=== PATIENT | female | born 1935 | race Caucasian/White ===

== ENCOUNTER 2017-05-26 13:33 | Inpatient (IN) | payer OTHER ==
[~2017-05-26] VITALS: Ht 152.4 cm; Wt 55.1 kg
[2017-05-26] VITALS (14 sets, daily range): BP systolic 118–143; BP diastolic 55–68
[2017-05-26] MEDS ORDERED: IPRATROPIUM BROMIDE 0.02% 2.5 ML NEB ONE (13:53)
[2017-05-26] MEDS ORDERED: ALBUTEROL SULF 0.083% NEB SOLN 3 ML NEB ONE (13:53)
[2017-05-26] MEDS ORDERED: METHYLPREDNISOLONE SOD SUCC 125 MG/2ML VIAL IV STA (14:12)
[2017-05-26] MEDS ORDERED: SODIUM CHLORIDE 0.9% 1000ML 1,000 ML IV STA (14:12)
[2017-05-26 14:13] LABS: ABG HCO3 30 mmol/L (23-28); ABG PCO2 44 mmHg (41-51); ABG PH 7.44 (7.31-7.41); ABG PO2 57 mmHg (80-105)
[2017-05-26] MEDS ORDERED: ASPIRIN 81 MG CHEW TAB PO ONE ×2 (14:15→16:15)
--- NOTE | 2017-05-26 14:46 | Diagnostic Imaging Report ---
EXAM: CHEST SINGLE (PORTABLE) DATE: 05/26/2017 2:12 PM INDICATION: \S\SOB \[id number] \S\1425 \S\Y COMPARISON: None FINDINGS: The heart is not enlarged. Aortic vascular calcifications present. No pneumothorax. Airspace opacities in the lung bases present, most notably on the left. Advanced left glenohumeral joint osteoarthritis and probable chronic rotator cuff tear changes. IMPRESSION: Probable left lower lobe pneumonia. Radiographic follow-up recommended. Signed by: Dr. Tashi Khalil MD on 05/26/2017 2:42 PM
[2017-05-26 14:50] LABS: BASOPHILS # (AUTO) 0.1 (0.0-0.1); BASOPHILS % 0.3 % (0.0-1.0); EOSINOPHILS # (AUTO) 0.1 (0.0-0.4); EOSINOPHILS % 0.3 % (0.0-6.0); HEMATOCRIT 41.2 % (34.2-44.1); LYMPHOCYTES # (AUTO) 6.3 (1.0-3.2); LYMPHOCYTES % 23.2 % (18.0-39.1); MEAN CORPUSCULAR HEMOGLOBIN 29.1 pg (28-32); MEAN CORPUSCULAR HGB CONC 31.6 g/dL (31-35); MEAN CORPUSCULAR VOLUME 92.4 fL (81-99); MONOCYTES # (AUTO) 1.8 (0.2-0.8); MONOCYTES % 6.7 % (4.4-11.3); NEUTROPHILS # (AUTO) 18.8 (2.1-6.9); NEUTROPHILS % 68.9 % (38.7-80.0); PLATELET COUNT 258 x10e3/uL (140-360); RED BLOOD COUNT 4.46 x10e6/uL (3.6-5.1)
[2017-05-26 14:56] LABS: INR 0.97; PROTHROMBIN TIME 12.1 seconds (11.9-14.5)
[2017-05-26 14:57] LABS: PARTIAL THROMBOPLASTIN TIME 26.2 seconds (23.8-35.5)
[2017-05-26] MEDS ORDERED: ALBUTEROL SULF 0.083% NEB SOLN 3 ML NEB NEB ONE (15:00)
[2017-05-26] MEDS ORDERED: ALBUTEROL/IPRATROPIUM 3 ML NEB NEB ONE (15:00)
[2017-05-26 15:08] LABS: ALANINE AMINOTRANSFERASE 16 IU/L (0-55); ALBUMIN/GLOBULIN RATIO 0.8 (0.8-2.0); ALKALINE PHOSPHATASE 24 IU/L (40-150); ANION GAP 14.9 mmol/L (8-16); BLOOD UREA NITROGEN 20 mg/dL (7-26); BUN/CREATININE RATIO 28 (6-25); CALCIUM 9.2 mg/dL (8.4-10.2); CARBON DIOXIDE 30 mmol/L (22-29); CHLORIDE 100 mmol/L (98-107); CREATINE KINASE 21 IU/L (29-168); CREATININE, SERUM 0.71 mg/dL (0.57-1.11); EST GLOMERULAR FILTRATION RATE > 60 ML/MIN (60-); GLUCOSE 113 mg/dL (74-118); POTASSIUM 3.9 mmol/L (3.5-5.1); SODIUM 141 mmol/L (136-145)
[2017-05-26] MEDS ORDERED: CEFTRIAXONE SOD 1 GM VIAL IV ONE (15:30)
[2017-05-26 15:54] LABS: BURR CELLS SLIGHT; LYMPHOCYTES % (MANUAL) 17 % (19-48); MONOCYTES % (MANUAL) 17 % (3.4-9.0); NEUTROPHILS % (MANUAL) 63 % (40-74); RBC MORPHOLOGY COMMENT NORMAL; STOMATOCYTES SLIGHT
[2017-05-26 15:55] LABS: PLATELET ESTIMATE ADEQUATE; PLATELET MORPHOLOGY COMMENT NORMAL; POIKILOCYTOSIS SLIGHT
[2017-05-26] MEDS ORDERED: LEVOFLOXACIN 750MG/D5W 150ML 150 ML IV ONE (16:00)
[2017-05-26] MEDS: SODIUM CHLORIDE 0.9% 1000ML 1,000 ML IV SCH ×2 (16:33→20:30)
[2017-05-26] MEDS ORDERED: CEFTRIAXONE SOD 1 GM VIAL IV SCH (17:00)
--- OUTSIDE RECORDS SUMMARY | 2017-05-26 17:28 | XMS REPORT ---
Author Author [facility] Address Unknown Phone Unavailable Care Team Providers Care Certified Medical Technician Assistant Name Role Phone KANG LANDON Unavailable Unavailable Problems This patient has no known problems. Allergies, Adverse Reactions, Alerts This patient has no known allergies or adverse reactions. Medications This patient has no known medications. Results Test Description Test Time Test Comments Text Results Atomic Results Result Comments CHEST SINGLE (PORTABLE) [place] [address] Patient Name: SHERRY SMITH MR #: [id number] : 1935 Age/Sex: 82/F Req #: [id number] Adm Physician: Ordered by: KANG LANDON MD Report # : [id number] Location: ER Room/Bed: Procedure: [id number] DX/CHEST SINGLE (PORTABLE) Exam Date: 05/26/17 Exam Time: 1425 REPORT STATUS: Signed EXAM: CHEST SINGLE (PORTABLE) DATE: 05/26/2017 2:12 PM INDICATION: COMPARISON: None FINDINGS: The heart is not enlarged. Aortic vascular calcifications present. No pneumothorax. Airspace opacities in the lung bases present, most notably on the left. Advanced left glenohumeral joint osteoarthritis and probable chronic rotator cuff tear changes. IMPRESSION : Probable left lower lobe pneumonia. Radiographic follow-up recommended. Signed by: Dr. Tashi Montoya MD on 05/26/2017 2:42 PM Dictated By: TASHI MONTOYA MD 144 Transcribed By: MICHELLE on 05/26/17 144 COPY TO: KANG LANDON MD
[2017-05-26] MEDS: IPRATROPIUM BROMIDE 0.02% 2.5 ML NEB NEB SCH (19:05)
[2017-05-26] MEDS: ALBUTEROL SULF 0.083% NEB SOLN 3 ML NEB NEB SCH ×2 (19:05→22:30)
[2017-05-26] MEDS: METHYLPREDNISOLONE SOD SUCC 40 MG/ML VIAL IV SCH (22:40)
[2017-05-27] VITALS (21 sets, daily range): BP systolic 99–163; BP diastolic 54–87
[2017-05-27 01:40] LABS: CREATINE KINASE MB 0.6 ng/mL (0-5.0)
[2017-05-27] MEDS: IPRATROPIUM BROMIDE 0.02% 2.5 ML NEB NEB SCH ×2 (02:50→07:15)
[2017-05-27] MEDS: ALBUTEROL SULF 0.083% NEB SOLN 3 ML NEB NEB SCH ×3 (02:50→10:58)
[2017-05-27] MEDS: SODIUM CHLORIDE 0.9% 1000ML 1,000 ML IV SCH (04:59)
[2017-05-27 06:08] LABS: BASOPHILS % 0.1 % (0.0-1.0); HEMATOCRIT 36.8 % (34.2-44.1); LYMPHOCYTES # (AUTO) 1.6 (1.0-3.2); LYMPHOCYTES % 6.9 % (18.0-39.1); MEAN CORPUSCULAR HEMOGLOBIN 29.6 pg (28-32); MEAN CORPUSCULAR HGB CONC 32.6 g/dL (31-35); MEAN CORPUSCULAR VOLUME 90.6 fL (81-99); MONOCYTES # (AUTO) 0.3 (0.2-0.8); MONOCYTES % 1.5 % (4.4-11.3); NEUTROPHILS # (AUTO) 20.8 (2.1-6.9); NEUTROPHILS % 91.1 % (38.7-80.0); PLATELET COUNT 249 x10e3/uL (140-360); RED BLOOD COUNT 4.06 x10e6/uL (3.6-5.1)
[2017-05-27 06:23] LABS: ANION GAP 13.1 mmol/L (8-16); BLOOD UREA NITROGEN 18 mg/dL (7-26); BUN/CREATININE RATIO 25 (6-25); CALCIUM 8.6 mg/dL (8.4-10.2); CARBON DIOXIDE 29 mmol/L (22-29); CHLORIDE 103 mmol/L (98-107); CREATININE, SERUM 0.72 mg/dL (0.57-1.11); EST GLOMERULAR FILTRATION RATE > 60 ML/MIN (60-); GLUCOSE 188 mg/dL (74-118); POTASSIUM 4.1 mmol/L (3.5-5.1); SODIUM 141 mmol/L (136-145)
[2017-05-27 06:42] LABS: CREATINE KINASE MB 0.8 ng/mL (0-5.0)
[2017-05-27] MEDS: METHYLPREDNISOLONE SOD SUCC 40 MG/ML VIAL IV SCH (06:46)
--- NOTE | 2017-05-27 07:10 | Diagnostic Imaging Report ---
EXAM: CHEST SINGLE (PORTABLE) DATE: 05/27/2017 5:00 AM INDICATION: Suspected pneumonia. COMPARISON: 05/26/2017 FINDINGS: See impression IMPRESSION: 1. More confluent opacity in the left lower lobe on today's examination in keeping with stable pneumonia. 2. Superimposed bilateral interstitial opacities suspicious for new fluid overload pattern. Signed by: Dr. Maury Duron M.D. on 05/27/2017 7:07 AM
[2017-05-27] MEDS ORDERED: FUROSEMIDE INJ 10 MG/ML 2 ML VIAL IV ONE (12:15)
[2017-05-27] MEDS: ASPIRIN 81 MG CHEW TAB PO SCH (12:41)
[2017-05-27] MEDS: LOSARTAN POTASSIUM 25 MG TAB PO SCH (12:41)
[2017-05-27] MEDS: AMLODIPINE BESYLATE 5 MG TAB PO SCH (12:41)
[2017-05-27] MEDS: LEVOTHYROXINE SODIUM 125 MCG TAB PO SCH (12:42)
[2017-05-27] MEDS: ALBUTEROL/IPRATROPIUM 3 ML NEB NEB SCH ×3 (14:51→23:00)
[2017-05-27 15:01] LABS: BAND NEUTROPHILS % (MANUAL) 1 %; LYMPHOCYTES % (MANUAL) 6 % (19-48); NEUTROPHILS % (MANUAL) 93 % (40-74)
[2017-05-27 15:02] LABS: PLATELET ESTIMATE ADEQUATE; PLATELET MORPHOLOGY COMMENT NORMAL; RBC MORPHOLOGY COMMENT NORMAL
[2017-05-27 15:03] LABS: ANISOCYTOSIS SLIGHT
[2017-05-27] MEDS: ENOXAPARIN SOD INJ 40 MG/0.4 ML SYR SC SCH (17:00)
[2017-05-27] MEDS: CEFTRIAXONE SOD 1 GM VIAL IV SCH (17:00)
[2017-05-28] VITALS (13 sets, daily range): BP systolic 120–156; BP diastolic 55–98
[2017-05-28] MEDS: ALBUTEROL/IPRATROPIUM 3 ML NEB NEB SCH ×6 (02:20→22:57)
[2017-05-28 06:03] LABS: BASOPHILS % 0.1 % (0.0-1.0); HEMATOCRIT 33.5 % (34.2-44.1); HEMOGLOBIN 10.7 g/dL (12.0-16.0); LYMPHOCYTES # (AUTO) 2.7 (1.0-3.2); MEAN CORPUSCULAR HEMOGLOBIN 28.8 pg (28-32); MEAN CORPUSCULAR HGB CONC 31.9 g/dL (31-35); MEAN CORPUSCULAR VOLUME 90.1 fL (81-99); MONOCYTES # (AUTO) 0.9 (0.2-0.8); MONOCYTES % 4.5 % (4.4-11.3); NEUTROPHILS # (AUTO) 16.8 (2.1-6.9); NEUTROPHILS % 81.7 % (38.7-80.0); PLATELET COUNT 242 x10e3/uL (140-360); RED BLOOD COUNT 3.72 x10e6/uL (3.6-5.1); RED CELL DISTRIBUTION WIDTH 15.6 % (11.7-14.4)
[2017-05-28] MEDS: LEVOTHYROXINE SODIUM 125 MCG TAB PO SCH (06:23)
[2017-05-28] MEDS: LOSARTAN POTASSIUM 25 MG TAB PO SCH (08:34)
[2017-05-28] MEDS: ASPIRIN 81 MG CHEW TAB PO SCH (08:34)
[2017-05-28] MEDS: AMLODIPINE BESYLATE 5 MG TAB PO SCH (08:34)
[2017-05-28] MEDS: PREDNISONE 20 MG TAB PO SCH (08:35)
[2017-05-28] MEDS ORDERED: AMLODIPINE BESYLATE 5 MG TAB PO ONE (13:20)
[2017-05-28] MEDS: ENOXAPARIN SOD INJ 40 MG/0.4 ML SYR SC SCH (17:41)
[2017-05-28] MEDS: CEFTRIAXONE SOD 1 GM VIAL IV SCH (17:41)
[2017-05-29 01:48] VITALS: BP 134/76
[2017-05-29 06:14] LABS: BASOPHILS % 0.1 % (0.0-1.0); EOSINOPHILS # (AUTO) 0.1 (0.0-0.4); EOSINOPHILS % 0.4 % (0.0-6.0); HEMATOCRIT 35.3 % (34.2-44.1); HEMOGLOBIN 11.2 g/dL (12.0-16.0); LYMPHOCYTES # (AUTO) 3.7 (1.0-3.2); MEAN CORPUSCULAR HEMOGLOBIN 29.1 pg (28-32); MEAN CORPUSCULAR HGB CONC 31.7 g/dL (31-35); MEAN CORPUSCULAR VOLUME 91.7 fL (81-99); MONOCYTES # (AUTO) 0.8 (0.2-0.8); MONOCYTES % 5.6 % (4.4-11.3); NEUTROPHILS # (AUTO) 9.2 (2.1-6.9); NEUTROPHILS % 66.3 % (38.7-80.0); PLATELET COUNT 258 x10e3/uL (140-360); RED BLOOD COUNT 3.85 x10e6/uL (3.6-5.1); RED CELL DISTRIBUTION WIDTH 15.3 % (11.7-14.4)
[2017-05-29] MEDS: ALBUTEROL/IPRATROPIUM 3 ML NEB NEB SCH ×2 (06:50→10:45)
[2017-05-29 08:00] VITALS: BP 134/67
[2017-05-29 08:29] VITALS: BP 134/67
[2017-05-29] MEDS: ASPIRIN 81 MG CHEW TAB PO SCH (08:41)
[2017-05-29] MEDS: PREDNISONE 20 MG TAB PO SCH (08:42)
[2017-05-29] MEDS: LOSARTAN POTASSIUM 25 MG TAB PO SCH (08:42)
[2017-05-29] MEDS ORDERED: AMLODIPINE BESYLATE 10 MG TAB PO SCH (09:00)
--- NOTE | 2017-05-29 11:34 | Discharge Summary ---
PRIMARY CARE DOCTOR: Dr. Yonny Page. FINAL DIAGNOSIS: Acute respiratory failure, resolved. SECONDARY DIAGNOSES 1. Community-acquired pneumonia, present on admission. 2. Chronic obstructive pulmonary disease exacerbation. 3. Chronic respiratory failure due to chronic obstructive pulmonary disease. 4. Hypertension. 5. Hypothyroidism. CONSULTANTS: None. PROCEDURES/STUDIES PERFORMED: None. HISTORY: Per H and P. HOSPITAL COURSE: Patient was admitted. Initially, she was on BiPAP. We were able to get her off the BiPAP. Patient underwent a course of Z-Jere already, therefore patient was put on IV Rocephin along with scheduled nebulizer treatments. Steroids were started as well. Each day, patient continued to improve. Initially, she had a leukocytosis of 27. At the time of discharge, her white count was 13. Her TSH is suppressed at 0.02. I have informed her PCP about this and he will make adjustment if indicated. I have instructed patient to hold her levothyroxine until she follows up with her PCP. Patient is already on oxygen at home. Patient was seen and examined today. It took 32 minutes total to discharge this patient today. She will go home on 3 more days of p.o. Levaquin and Medrol Dosepak. CONDITION ON DISCHARGE: Stable. DISCHARGE MEDICATIONS: Please see medication reconciliation form. JOJO JOSE M.D. Job#: [id number] VAS cc:Dr. Yonny Page
[2017-05-29] MEDS ORDERED: LEVAQUIN500 MG PO (11:57)
[2017-05-29] MEDS ORDERED: MEDROL2 MG PO (11:58)
== END 2017-05-29 12:10 | disposition home or self-care (01) | DRG 193 ==
LOC: ER 13:33 → ERHOLD 17:25 → ICU 17:26 → IMCU 05-28 15:06
PROVIDERS: ADMIT Internal Medicine; ATTEND Internal Medicine
PROC: 5A09357 Assistance with Respiratory Ventilation, Less than 24 Consecutive Hours, Continuous Positive Airway Pressure (ICD-10-PCS; principal; 2017-05-26)
DX: J18.9 Pneumonia, unspecified organism (principal); J96.01 Acute respiratory failure with hypoxia; J96.21 Acute and chronic respiratory failure with hypoxia; J44.0 Chronic obstructive pulmonary disease with (acute) lower respiratory infection; J44.1 Chronic obstructive pulmonary disease with (acute) exacerbation; Z99.81 Dependence on supplemental oxygen; I10 Essential (primary) hypertension; E03.9 Hypothyroidism, unspecified; Z87.891 Personal history of nicotine dependence
CPT/HCPCS: 36415; 36600; 71045; 80048; 80053; 82550; 82553; 82805; 83605; 83880; 84443; 84484; 85025; 85610; 85730; 87040; 93005; 94640; 94660; 96360; 99285; J0696; J1650; J1940; J2920; J7030

== ENCOUNTER 2017-07-31 13:24 | Inpatient (IN) | payer OTHER ==
[~2017-07-31] VITALS: Ht 152.4 cm; Wt 53.7 kg
[~2017-07-31 13:24] MED LIST: LEVAQUIN500 MG PO; MEDROL2 MG PO
--- OUTSIDE RECORDS SUMMARY | 2017-07-31 13:28 | XMS REPORT | Continuity of Care Document ---
Author Author [facility] Organization [facility] Address [address] [place] [address] Phone Unavailable Care Team Providers Care Mandate Retail Service Merchandiser Name Role Phone NONSTAFF PCP Unavailable Insurance Providers Guarantor Cleveland Gonzales Address [address] [place] [address] Email [email or web address] [employer] Policy Number [id number] Subscriber's Name Cleveland Gonzales Relationship 18 Self / Same As Patient Group Number [id number] Group Name [facility] - Medicare Advantage Divis Advance Directives Directive Response Recorded Date/Time Does the patient have an advance directive? No 05/26/17 6:25pm If yes, is advance directive on file with [facility]? No 05/26/17 4:51pm If not on file with [facility] will patient provide a copy? No 05/26/17 4:51pm Do you have a Directive to Physician? No 05/26/17 4:51pm Do you have a Medical Power of Industrial Relations Specialist? No 05/26/17 4:51pm Do you have an out of hospital Do Not Resuscitate Order? No 05/26/17 4:51pm Do you have any special needs we should be aware of? No 05/26/17 4:51pm Do you have a support person here with you today? Yes 05/26/17 4:51pm Did patient receive Notice of Privacy Practices? Yes 05/26/17 4:51pm Did patient receive patient rights and responsibilities? Yes 05/26/17 4:51pm Problems No problem information available. Medications Current Home Medications Medication Dose Units Route Directions Days Qty Instructions Start Date Levofloxacin (Levaquin) 500 Mg Tablet 500 Mg Oral Daily 3 Days Methylprednisolone (Medrol) 2 Mg Tablet 2 Mg Oral Use As Directed Social History Social History Problem Response Recorded Date/Time Onset Date Status Hx Psychiatric Problems No 05/26/2017 6:25pm Not Applicable Not Applicable Hx Eating Disorder No 05/26/2017 6:25pm Not Applicable Not Applicable Hx Substance Use Disorder No 05/26/2017 6:25pm Not Applicable Not Applicable Hx Depression No 05/26/2017 6:25pm Not Applicable Not Applicable Hx Alcohol Use No 05/26/2017 6:25pm Not Applicable Not Applicable Hx Substance Use Treatment No 05/26/2017 6:25pm Not Applicable Not Applicable Hx Physical Abuse No 05/26/2017 6:25pm Not Applicable Not Applicable Smoking Status Start Date Stop Date Former smoker Hospital Discharge Instructions No hospital discharge instruction information available. Plan of Care Discharge Date 05/29/17 12:10pm Disposition HOME, SELF-CARE Instructions/Education Provided COPD Prescriptions See Medication Section Functional Status Query Response Date Recorded FUNCTIONAL STATUS . May 28, 2017 1:28pm Assistive Devices Standard Walker May 26, 2017 7:00pm Ambulation Ability Independent May 26, 2017 7:00pm Toileting Ability Minimum Assistance May 28, 2017 12:00pm Allergies, Adverse Reactions, Alerts No known allergies. Immunizations No immunization information available. Vital Signs Acute Vital Signs Vital Response Date/Time Temperature (Fahrenheit) 98.0 degrees F (97.6 - 99.5) 05/29/2017 8:29am Pulse Pulse Rate (adult) 92 bpm (60 - 90) 05/29/2017 8:29am Respiratory Rate 22 bpm (12 - 24) 05/29/2017 8:29am Blood Pressure 134/67 mm Hg 05/29/2017 8:29am Height 5 ft 0 in 05/26/2017 2:30pm Weight 121.56 lb 05/27/2017 7:40am Body Mass Index 23.7 kg/m^2 05/29/2017 9:30am Results Laboratory Results Test Name Result Units Flags Reference Collection Date/Time Result Date/ Time Comments White Blood Count 13.81 x10e3/uL H 4.8-10.8 05/29/2017 5:452017 6:17am Red Blood Count 3.85 x10e6/uL 3.6-5.1 05/29/2017 5:4505/29/2017 6: 17am Hemoglobin 11.2 g/dL L 12.0-16.0 05/29/2017 5:4505/29/2017 6:17am Hematocrit 35.3 % 34.2-44.1 05/29/2017 5:4505/29/2017 6:17am Mean Corpuscular Volume 91.7 fL 81-99 05/29/2017 5:4505/29/2017 6: 17am Mean Corpuscular Hemoglobin 29.1 pg 28-32 05/29/2017 5:4505/29/2017 6:17am Mean Corpuscular Hemoglobin Concent 31.7 g/dL 31-35 05/29/2017 5:4505/29/2017 6:17am Red Cell Distribution Width 15.3 % H 11.7-14.4 05/29/2017 5:452017 6:17am Platelet Count 258 x10e3/uL 140-360 05/29/2017 5:4505/29/2017 6: 17am Neutrophils (%) (Auto) 66.3 % 38.7-80.0 05/29/2017 5:4505/29/2017 6: 17am Lymphocytes (%) (Auto) 27.0 % 18.0-39.1 05/29/2017 5:4505/29/2017 6: 17am Monocytes (%) (Auto) 5.6 % 4.4-11.3 05/29/2017 5:4505/29/2017 6: 17am Eosinophils (%) (Auto) 0.4 % 0.0-6.0 05/29/2017 5:4505/29/2017 6: 17am Basophils (%) (Auto) 0.1 % 0.0-1.0 05/29/2017 5:4505/29/2017 6:17am IM GRANULOCYTES % 0.6 % 0.0-1.0 05/29/2017 5:45am 05/29/2017 6:17am Neutrophils # (Auto) 9.2 H 2.1-6.9 05/29/2017 5:45am 05/29/2017 6: 17am Lymphocytes # (Auto) 3.7 H 1.0-3.2 05/29/2017 5:45am 05/29/2017 6: 17am Monocytes # (Auto) 0.8 0.2-0.8 05/29/2017 5:45am 05/29/2017 6:17am Eosinophils # (Auto) 0.1 0.0-0.4 05/29/2017 5:45am 05/29/2017 6:17am Basophils # (Auto) 0.0 0.0-0.1 05/29/2017 5:45am 05/29/2017 6:17am Absolute Immature Granulocyte (auto 0.08 x10e3/uL 0-0.1 05/29/2017 5: 45am 05/29/2017 6:17am Differential Total Cells Counted 100 05/27/2017 6:00am 05/27/2017 3 :03pm Neutrophils % (Manual) 93 % H 40-74 05/27/2017 6:00am 05/27/2017 3:03pm Band Neutrophils % 1 % 05/27/2017 6:00am 05/27/2017 3:03pm Lymphocytes % (Manual) 6 % L 19-48 05/27/2017 6:00am 05/27/2017 3:03pm Monocytes % (Manual) 17 % H 3.4-9.0 05/26/2017 1:54pm 05/26/2017 3:55pm Reactive Lymphocytes 3 05/26/2017 1:54pm 05/26/2017 3:55pm Platelet Estimate ADEQUATE 05/27/2017 6:00am 05/27/2017 3:03pm Platelet Morphology Comment NORMAL 05/27/2017 6:00am 05/27/2017 3: 03pm Poikilocytosis SLIGHT 05/26/2017 1:54pm 05/26/2017 3:55pm Anisocytosis SLIGHT 05/27/2017 6:00am 05/27/2017 3:03pm Stomatocytes SLIGHT 05/26/2017 1:54pm 05/26/2017 3:55pm Yane Cells SLIGHT 05/26/2017 1:54pm 05/26/2017 3:55pm Red Cell Morphology Comment NORMAL 05/27/2017 6:00am 05/27/2017 3: 03pm Prothrombin Time 12.1 seconds 11.9-14.5 05/26/2017 1:54pm 05/26/2017 2: 59pm Prothromb Time International Ratio 0.97 05/26/2017 1:54pm 2017 2:59pm Oral Anticoagulant Therapy INR Values: 1. Low Intensity Therapy 1.5 - 2.0 2. Moderate Intensity Therapy 2.0 - 3.0 3. High Intensity Therapy(1) 2.5 - 3.5 4. High Intensity Therapy(2) 3.0 - 4.0 5. Panic Value INR > 5.0 Activated Partial Thromboplast Time 26.2 seconds 23.8-35.5 05/26/2017 1: 54pm 05/26/2017 2:59pm Sodium Level 141 mmol/L 136-145 05/27/2017 6:00am 05/27/2017 6:24am Potassium Level 4.1 mmol/L 3.5-5.1 05/27/2017 6:00am 05/27/2017 6:24am Chloride Level 103 mmol/L 98-107 05/27/2017 6:00am 05/27/2017 6:24am Carbon Dioxide Level 29 mmol/L -05/27/2017 6:00am 05/27/2017 6: 24am Anion Gap 13.1 mmol/L 8-05/27/2017 6:00am 05/27/2017 6:24am Blood Urea Nitrogen 18 mg/dL -05/27/2017 6:00am 05/27/2017 6:24am Creatinine 0.72 mg/dL 0.57-1.11 05/27/2017 6:00am 05/27/2017 6:24am BUN/Creatinine Ratio 24 09-05/27/2017 6:00am 05/27/2017 6:24am Estimat Glomerular Filtration Rate > 60 ML/MIN 60- 05/27/2017 6:00am 6:24am Ranges were taken from the National Kidney Disease Education Program and the National Kid[employer] Foundation literature. Reference ranges: 60 or greater: Normal 16-59 (for 3 consecutive months): Chronic kidney disease 15 or less: Kidney failure Glucose Level 188 mg/dL H 74-118 05/27/2017 6:00am 05/27/2017 6:24am Calcium Level 8.6 mg/dL 8.4-10.2 05/27/2017 6:00am 05/27/2017 6:24am Lactic Acid Level 13.0 MG/DL 4.5-19.8 05/26/2017 2:06pm 05/26/2017 3: 06pm Total Bilirubin 1.1 mg/dL 0.2-1.2 05/26/2017 1:54pm 05/26/2017 3:09pm Aspartate Amino Transf (AST/SGOT) 17 IU/L 5-34 05/26/2017 1:54pm 2017 3:09pm Alanine Aminotransferase (ALT/SGPT) 16 IU/L 0-55 05/26/2017 1:54pm 3:09pm Total Protein 6.8 g/dL 6.5-8.1 05/26/2017 1:54pm 05/26/2017 3:09pm Albumin 3.0 g/dL L 3.5-5.0 05/26/2017 1:54pm 05/26/2017 3:09pm Globulin 3.8 g/dL H 2.3-3.5 05/26/2017 1:54pm 05/26/2017 3:09pm Albumin/Globulin Ratio 0.8 0.8-2.0 05/26/2017 1:54pm 05/26/2017 3: 09pm Alkaline Phosphatase 24 IU/L L 40-150 05/26/2017 1:54pm 05/26/2017 3: 09pm B-Type Natriuretic Peptide 33.8 pg/mL 0-100 05/26/2017 1:54pm 2017 3:15pm Creatine Kinase 16 IU/L L 29-168 05/27/2017 6:00am 05/27/2017 6:50am Creatine Kinase MB 0.80 ng/mL 0-5.0 05/27/2017 6:00am 05/27/2017 6: 50am Troponin I 0.004 ng/mL 0-0.300 05/27/2017 6:00am 05/27/2017 6:50am Thyroid Stimulating Hormone (TSH) 0.025 uIU/mL L 0.350-4.940 05/28/2017 5 :30am 05/28/2017 6:52am Arterial Blood pH 7.44 H 7.31-7.41 05/26/2017 2:02pm 05/26/2017 2: 14pm Arterial Blood Partial Pressure CO2 44 mmHg 41-51 05/26/2017 2:02pm 2:14pm Arterial Blood Partial Pressure O2 57 mmHg L 80-105 05/26/2017 2:02pm 2:14pm Arterial Blood HCO3 30 mmol/L H 23-28 05/26/2017 2:02pm 05/26/2017 2: 14pm Arterial Blood Base Excess 6.0 mmol/L H -2 - 3 05/26/2017 2:02pm 2017 2:14pm Arterial Blood Oxygen Saturation 90.0 % L 95-98 05/26/2017 2:02pm 2017 2:14pm Microbiology Results Procedure Source Organism/Result Collection Date/Time Result Date/Time Result Status Blood Culture Blood NO GROWTH AFTER 48 HOURS 2:00pm 05/28/2017 2:42pm Preliminary Procedures No procedure information available. Encounters Encounter Location Arrival/Admit Date Discharge/Depart Date Attending Provider Discharged Inpatient [facility] 05/26/17 5:25pm 05/29/17 12:10pm JOJO JOSE MD
[2017-07-31 15:29] LABS: BASOPHILS # (AUTO) 0.1 (0.0-0.1); BASOPHILS % 0.9 % (0.0-1.0); EOSINOPHILS # (AUTO) 0.2 (0.0-0.4); EOSINOPHILS % 1.6 % (0.0-6.0); HEMATOCRIT 39.2 % (34.2-44.1); HEMOGLOBIN 12.5 g/dL (12.0-16.0); LYMPHOCYTES # (AUTO) 4.8 (1.0-3.2); LYMPHOCYTES % 35.2 % (18.0-39.1); MEAN CORPUSCULAR HEMOGLOBIN 29.4 pg (28-32); MEAN CORPUSCULAR HGB CONC 31.9 g/dL (31-35); MEAN CORPUSCULAR VOLUME 92.2 fL (81-99); MONOCYTES # (AUTO) 0.8 (0.2-0.8); MONOCYTES % 5.7 % (4.4-11.3); NEUTROPHILS # (AUTO) 7.6 (2.1-6.9); NEUTROPHILS % 56.1 % (38.7-80.0); PLATELET COUNT 558 x10e3/uL (140-360); RED BLOOD COUNT 4.25 x10e6/uL (3.6-5.1); RED CELL DISTRIBUTION WIDTH 14.8 % (11.7-14.4)
[2017-07-31] MEDS ORDERED: ALBUTEROL/IPRATROPIUM 3 ML NEB NEB ONE (15:30)
[2017-07-31] MEDS ORDERED: SODIUM CHLORIDE 0.9% 500ML 500 ML IV ONE (15:30)
[2017-07-31 15:43] LABS: ALANINE AMINOTRANSFERASE 9 IU/L (0-55); ALBUMIN 2.7 g/dL (3.5-5.0); ALBUMIN/GLOBULIN RATIO 0.5 (0.8-2.0); ALKALINE PHOSPHATASE 25 IU/L (40-150); ANION GAP 16.1 mmol/L (8-16); BLOOD UREA NITROGEN 34 mg/dL (7-26); BUN/CREATININE RATIO 38 (6-25); CALCIUM 10.2 mg/dL (8.4-10.2); CARBON DIOXIDE 31 mmol/L (22-29); CHLORIDE 98 mmol/L (98-107); CREATININE, SERUM 0.89 mg/dL (0.57-1.11); EST GLOMERULAR FILTRATION RATE > 60 ML/MIN (60-); GLUCOSE 101 mg/dL (74-118); POTASSIUM 4.1 mmol/L (3.5-5.1); SODIUM 141 mmol/L (136-145)
--- NOTE | 2017-07-31 16:54 | Diagnostic Imaging Report ---
PROCEDURE: Frontal and lateral views of the chest. COMPARISON: Patients [facility], DX, CHEST SINGLE (PORTABLE), 05/27/2017, 5:03. INDICATIONS: HYPOXIA FINDINGS: Lines/tubes: None. Lungs: Increased lucency in the upper lungs and mild hyperinflation, suggesting COPD. Increased density/opacity in the right infrahilar region. Patchy opacity in the left lower lung. Rest of the lungs is clear Pleura: There is no pleural effusion or pneumothorax. Heart and mediastinum: Cardiac silhouette is unremarkable. Pulmonary vasculature is normal. Atherosclerotic calcification of the thoracic aorta arch. Bones: No acute bony abnormality. IMPRESSION: 1. COPD changes. increased density/opacity in the right infrahilar region, which may represent pneumonia, in the appropriate clinical setting. Patchy opacity in the left lower lung may reflect atelectasis. Recommend chest PA and lateral 4-6 weeks after appropriate treatment to document resolution. Homero Oliveros M.D. Dictated by: Homero Oliveros M.D. on 07/31/2017 at 16:55 Electronically approved by: Homero Oliveros M.D. on 07/31/2017 at 16:55
[2017-07-31 16:58] LABS: B-TYPE NATRIURETIC PEPTIDE2 36.6 pg/mL (0-100)
[2017-07-31] MEDS ORDERED: LEVOFLOXACIN 500MG/D5W 100ML 100 ML IV ONE (17:00)
[2017-07-31] MEDS ORDERED: SODIUM CHLORIDE FLUSH 10 ML SYR INJ PRN (17:00)
[2017-07-31] MEDS ORDERED: SYNTHROID100 MCG PO (18:22)
[2017-07-31] MEDS ORDERED: ADVAIR 250-501 EACH INH (18:22)
[2017-07-31] MEDS ORDERED: SPIRIVA18 MCG INH (18:22)
[2017-07-31] MEDS: ALBUTEROL/IPRATROPIUM 3 ML NEB NEB SCH ×2 (19:00→23:18)
[2017-07-31 20:00] VITALS: BP 130/54
[2017-08-01] VITALS (7 sets, daily range): BP systolic 112–131; BP diastolic 46–62
[2017-08-01] MEDS: ALBUTEROL/IPRATROPIUM 3 ML NEB NEB SCH ×6 (03:00→22:45)
[2017-08-01 06:39] LABS: BASOPHILS # (AUTO) 0.1 (0.0-0.1); BASOPHILS % 0.8 % (0.0-1.0); EOSINOPHILS # (AUTO) 0.2 (0.0-0.4); EOSINOPHILS % 1.6 % (0.0-6.0); HEMATOCRIT 36.5 % (34.2-44.1); HEMOGLOBIN 11.6 g/dL (12.0-16.0); LYMPHOCYTES % 38.7 % (18.0-39.1); MEAN CORPUSCULAR HEMOGLOBIN 29.2 pg (28-32); MEAN CORPUSCULAR HGB CONC 31.8 g/dL (31-35); MEAN CORPUSCULAR VOLUME 91.9 fL (81-99); MONOCYTES # (AUTO) 0.9 (0.2-0.8); MONOCYTES % 7.1 % (4.4-11.3); NEUTROPHILS # (AUTO) 6.7 (2.1-6.9); NEUTROPHILS % 51.3 % (38.7-80.0); PLATELET COUNT 503 x10e3/uL (140-360); RED BLOOD COUNT 3.97 x10e6/uL (3.6-5.1); RED CELL DISTRIBUTION WIDTH 14.7 % (11.7-14.4)
[2017-08-01 07:13] LABS: ANION GAP 14.4 mmol/L (8-16); BLOOD UREA NITROGEN 22 mg/dL (7-26); BUN/CREATININE RATIO 25 (6-25); CALCIUM 9.7 mg/dL (8.4-10.2); CARBON DIOXIDE 30 mmol/L (22-29); CHLORIDE 100 mmol/L (98-107); CREATININE, SERUM 0.87 mg/dL (0.57-1.11); EST GLOMERULAR FILTRATION RATE > 60 ML/MIN (60-); GLUCOSE 88 mg/dL (74-118); POTASSIUM 4.4 mmol/L (3.5-5.1); SODIUM 140 mmol/L (136-145)
[2017-08-01 08:21] LABS: EOSINOPHILS % (MANUAL) 5 % (0-7); LYMPHOCYTES % (MANUAL) 31 % (19-48); METAMYELOCYTES % (MANUAL) 1 % (0-0); MONOCYTES % (MANUAL) 10 % (3.4-9.0); NEUTROPHILS % (MANUAL) 50 % (40-74)
[2017-08-01 08:22] LABS: ANISOCYTOSIS SLIGHT; HYPOCHROMASIA SLIGHT; PLATELET ESTIMATE SLIGHTLY DECREASED; PLATELET MORPHOLOGY COMMENT NORMAL; RBC MORPHOLOGY COMMENT NORMAL
[2017-08-01] MEDS ORDERED: BENZONATATE 100 MG CAP PO PRN (09:15)
[2017-08-01] MEDS ORDERED: CEFTRIAXONE SOD 1 GM/NS 50 ML 50 ML IV SCH (09:15)
[2017-08-01] MEDS ORDERED: CEFTRIAXONE SOD 1 GM VIAL IV SCH (09:45)
[2017-08-01] MEDS ORDERED: AZITHROMYCIN 250 MG TAB PO NR (10:00)
--- NOTE | 2017-08-01 11:23 | Diagnostic Imaging Report ---
PROCEDURE:CT CHEST WITHOUT CONTRAST COMPARISON:Chest x-rayS 05/26/17 and 07/31/17 INDICATIONS:PNEUMONIA TECHNIQUE:CT images were created without the administration of contrast material. DLP: 270.57 mGy-cm FINDINGS: LYMPH NODES: No enlarged axillary or subclavicular lymph nodes. No enlarged mediastinal or hilar lymph nodes given the lack of intravenous contrast. LUNGS: Diffusely hyperinflated. No evidence of interstitial thickening. There is bilateral apical pleural-parenchymal thickening. Right lung: There is mucus filling several lower lobe bronchi with resulting atelectasis. Several tiny nodules in the lateral aspect of the lower lobe are in an "tree in bud configuration". There is mild centrilobular emphysema of the lung apex. There is diffuse bronchial wall thickening without evidence of bronchiectasis. Left lung: Spiculated nodule in the upper lobe measures 1.1 x 0.7 cm. Solid, triangle shaped nodule in the posterior upper lobe measures 0.6 x 0.8 cm. Nodule in the posterior upper lobe measures 0.5 x 0.7 cm. Nodule in the superior segment of the lower lobe measures 0.8 x 0.7 cm. There is subsegmental atelectasis of the base of the lobe with several bronchi filled with mucus. There is mild bronchial wall thickening without bronchiectasis. Airways: Diffuse calcifications of the tracheobronchial tree. PLEURA: Tiny posterior layering right pleural effusion. THYROID/BASE OF NECK: Visualized portions are unremarkable. MEDIASTINUM: The heart is mildly enlarged. No pericardial effusion. The main pulmonary artery measures 3 cm in diameter. The ascending aorta measures 3 cm in diameter. The esophagus is collapsed. There are diffuse calcifications of the aorta and coronary arteries. CHEST WALL:No defects or evidence of soft tissue mass. LIMITED ABDOMEN:No mass the visualized portion of the liver, gallbladder, pancreas, spleen, and left kidney. There is mild thickening of the apex of the left adrenal gland. Underlying nodule cannot be excluded. BONES:Degenerative changes of the spine consistent with age. There degenerative changes of the shoulders, left more severe than right. No compression deformities of the thoracic spine. A sclerotic, nondestructive lesion in T9 measures 5 mm and is surrounded by a lucent lesion measuring 9 mm with coarse trabecular markings suggestive of a hemangioma. CONCLUSION: 1. Bilateral lower lobe bronchial opacification with resulting subsegmental atelectasis and likely several areas of pneumonia. Findings are concerning for aspiration. 2. Multiple "tree in bud" nodules in the right lower lobe suggestive of bronchopneumonia. 3. Multiple nodules in the left lung and sclerotic lesion in the spine bear watching to confirm stability. This can be performed in 6 months. 4. Cardiomegaly and enlarged main pulmonary artery consistent with pulmonary artery hypertension. Aortic ectasia. Atherosclerosis. 5. Mild emphysema and chronic bronchitis. 6. Thickening of the left adrenal gland. Underlying nodule cannot be excluded. Recommended CT of the abdomen for further characterization. Dictated by: Nic Hwang M.D. on 08/01/2017 at 11:24 Electronically approved by: Nic Hwang M.D. on 08/01/2017 at 11:24
[2017-08-01] MEDS: METHYLPREDNISOLONE SOD SUCC 40 MG/ML VIAL IV SCH ×2 (13:00→22:08)
[2017-08-01] MEDS: BENZONATATE 100 MG CAP PO SCH ×2 (14:20→20:33)
[2017-08-01] MEDS: SALMETEROL/FLUTICASONE 250/50 INH SCH (19:40)
[2017-08-02] VITALS (7 sets, daily range): BP systolic 116–135; BP diastolic 56–62
[2017-08-02] MEDS: ALBUTEROL/IPRATROPIUM 3 ML NEB NEB SCH ×6 (02:06→22:55)
[2017-08-02] MEDS: METHYLPREDNISOLONE SOD SUCC 40 MG/ML VIAL IV SCH ×3 (06:10→20:16)
[2017-08-02] MEDS: LEVOTHYROXINE SODIUM 100 MCG TAB PO SCH (06:10)
[2017-08-02 06:51] LABS: BASOPHILS % 0.1 % (0.0-1.0); HEMATOCRIT 37.5 % (34.2-44.1); LYMPHOCYTES # (AUTO) 1.7 (1.0-3.2); LYMPHOCYTES % 18.3 % (18.0-39.1); MEAN CORPUSCULAR VOLUME 90.6 fL (81-99); MONOCYTES # (AUTO) 0.1 (0.2-0.8); MONOCYTES % 0.8 % (4.4-11.3); NEUTROPHILS # (AUTO) 7.4 (2.1-6.9); NEUTROPHILS % 80.3 % (38.7-80.0); PLATELET COUNT 509 x10e3/uL (140-360); RED BLOOD COUNT 4.14 x10e6/uL (3.6-5.1); RED CELL DISTRIBUTION WIDTH 14.5 % (11.7-14.4)
[2017-08-02 07:20] LABS: ANION GAP 17.2 mmol/L (8-16); BLOOD UREA NITROGEN 29 mg/dL (7-26); BUN/CREATININE RATIO 35 (6-25); CALCIUM 9.3 mg/dL (8.4-10.2); CARBON DIOXIDE 26 mmol/L (22-29); CHLORIDE 97 mmol/L (98-107); CREATININE, SERUM 0.82 mg/dL (0.57-1.11); EST GLOMERULAR FILTRATION RATE > 60 ML/MIN (60-); GLUCOSE 165 mg/dL (74-118); POTASSIUM 4.2 mmol/L (3.5-5.1); SODIUM 136 mmol/L (136-145)
[2017-08-02] MEDS: SALMETEROL/FLUTICASONE 250/50 INH SCH ×2 (07:40→18:47)
[2017-08-02] MEDS ORDERED: AZITHROMYCIN 250 MG TAB PO SCH (09:00)
[2017-08-02] MEDS: BENZONATATE 100 MG CAP PO SCH ×3 (09:23→20:16)
[2017-08-02] MEDS ORDERED: SODIUM CHLORIDE 0.9% 250ML 250 ML ONE (11:52)
[2017-08-02] MEDS: PIPER-TAZ 3.375 GM 100 ML IV SCH ×2 (12:00→17:55)
[2017-08-02] MEDS: ENOXAPARIN 30 MG/0.3 ML SYR SC SCH (17:30)
[2017-08-03] VITALS (10 sets, daily range): BP systolic 110–162; BP diastolic 54–68
[2017-08-03] MEDS: PIPER-TAZ 3.375 GM 100 ML IV SCH ×3 (02:30→17:17)
[2017-08-03] MEDS: ALBUTEROL/IPRATROPIUM 3 ML NEB NEB SCH ×6 (03:44→23:40)
[2017-08-03 05:56] LABS: BASOPHILS % 0.2 % (0.0-1.0); HEMATOCRIT 31.8 % (34.2-44.1); HEMOGLOBIN 10.4 g/dL (12.0-16.0); LYMPHOCYTES # (AUTO) 1.7 (1.0-3.2); LYMPHOCYTES % 13.3 % (18.0-39.1); MEAN CORPUSCULAR HEMOGLOBIN 29.4 pg (28-32); MEAN CORPUSCULAR HGB CONC 32.7 g/dL (31-35); MEAN CORPUSCULAR VOLUME 89.8 fL (81-99); MONOCYTES # (AUTO) 0.4 (0.2-0.8); NEUTROPHILS # (AUTO) 10.5 (2.1-6.9); NEUTROPHILS % 82.8 % (38.7-80.0); PLATELET COUNT 437 x10e3/uL (140-360); RED BLOOD COUNT 3.54 x10e6/uL (3.6-5.1); RED CELL DISTRIBUTION WIDTH 14.6 % (11.7-14.4)
[2017-08-03] MEDS: LEVOTHYROXINE SODIUM 100 MCG TAB PO SCH (05:56)
[2017-08-03] MEDS: METHYLPREDNISOLONE SOD SUCC 40 MG/ML VIAL IV SCH ×3 (05:56→21:02)
[2017-08-03 06:17] LABS: ANION GAP 12.8 mmol/L (8-16); BLOOD UREA NITROGEN 33 mg/dL (7-26); BUN/CREATININE RATIO 38 (6-25); CALCIUM 8.8 mg/dL (8.4-10.2); CARBON DIOXIDE 30 mmol/L (22-29); CHLORIDE 99 mmol/L (98-107); CREATININE, SERUM 0.87 mg/dL (0.57-1.11); EST GLOMERULAR FILTRATION RATE > 60 ML/MIN (60-); GLUCOSE 170 mg/dL (74-118); POTASSIUM 4.8 mmol/L (3.5-5.1); SODIUM 137 mmol/L (136-145)
[2017-08-03] MEDS: SALMETEROL/FLUTICASONE 250/50 INH SCH ×2 (07:00→20:00)
[2017-08-03] MEDS: AZITHROMYCIN 250 MG TAB PO SCH (09:00)
[2017-08-03] MEDS: BENZONATATE 100 MG CAP PO SCH ×3 (09:00→21:02)
[2017-08-03] MEDS: ENOXAPARIN 30 MG/0.3 ML SYR SC SCH (17:17)
[2017-08-04] VITALS (7 sets, daily range): BP systolic 132–164; BP diastolic 58–72
[2017-08-04] MEDS: PIPER-TAZ 3.375 GM 100 ML IV SCH ×3 (02:18→17:14)
[2017-08-04] MEDS: ALBUTEROL/IPRATROPIUM 3 ML NEB NEB SCH ×6 (03:00→23:50)
[2017-08-04] MEDS: METHYLPREDNISOLONE SOD SUCC 40 MG/ML VIAL IV SCH ×3 (06:41→21:16)
[2017-08-04] MEDS: LEVOTHYROXINE SODIUM 100 MCG TAB PO SCH (06:41)
[2017-08-04] MEDS: SALMETEROL/FLUTICASONE 250/50 INH SCH ×2 (07:10→20:00)
[2017-08-04] MEDS: BENZONATATE 100 MG CAP PO SCH ×3 (08:59→21:16)
[2017-08-04] MEDS: AZITHROMYCIN 250 MG TAB PO SCH (08:59)
[2017-08-04] MEDS: ENOXAPARIN 30 MG/0.3 ML SYR SC SCH (17:14)
[2017-08-05] MEDS: PIPER-TAZ 3.375 GM 100 ML IV SCH (02:00)
[2017-08-05] MEDS: ALBUTEROL/IPRATROPIUM 3 ML NEB NEB SCH ×3 (03:00→11:00)
[2017-08-05 04:10] VITALS: BP 146/67
[2017-08-05] MEDS: METHYLPREDNISOLONE SOD SUCC 40 MG/ML VIAL IV SCH (05:54)
[2017-08-05] MEDS: LEVOTHYROXINE SODIUM 100 MCG TAB PO SCH (05:54)
[2017-08-05] MEDS: SALMETEROL/FLUTICASONE 250/50 INH SCH (07:00)
[2017-08-05 07:49] VITALS: BP 132/71
[2017-08-05] MEDS: BENZONATATE 100 MG CAP PO SCH (08:57)
[2017-08-05] MEDS: AZITHROMYCIN 250 MG TAB PO SCH (08:57)
[2017-08-05 09:18] VITALS: BP 132/71
[2017-08-05] MEDS ORDERED: DALIRESP500 MCG PO (11:25)
[2017-08-05] MEDS ORDERED: AUGMENTIN 875-1 EACH PO (11:27)
[2017-08-05] MEDS ORDERED: TESSALON PERLE100 MG PO (11:28)
[2017-08-05] MEDS ORDERED: ZOFRAN ODT4 MG SL (11:30)
[2017-08-05] MEDS ORDERED: METHYLPREDNISOLO4 M1 (11:32)
[2017-08-05 11:58] VITALS: BP 180/70
--- NOTE | 2017-08-05 23:52 | Discharge Summary ---
PCP: Dr. Yonny Page. FINAL DIAGNOSES 1. Aspiration pneumonia with multilobar pneumonia secondary to severe cough. 2. Acute exacerbation of chronic obstructive pulmonary disease. 3. Status post hypoxia. 4. Status post leukocytosis, fever with cough. 5. Baseline oxygen dependency with advanced chronic obstructive pulmonary disease. SUMMARY: An 82-year-old female with persistent cough, fever, shortness of breath, and hypoxic. At baseline, the patient is oxygen dependent secondary to her emphysema. Apparently she aspirated when she was having severe cough. She came in with multilobar pneumonia, worse on the right compared to the left. Patient placed on Zosyn and azithromycin. She received multiple nebulizer treatments. She also received steroids. Patient is doing much better now. She will discharge home today. On home medications, she does have nebulizer medication and Advair Diskus. She is stable. She will go home with the following prescription 1. Medrol Dosepak to finish for 7 days. 2. Augmentin 875 mg b.i.d. for 5 days with food. 3. Tessalon Perles 100 mg q.4 h. p.r.n. for cough. 4. Zofran ODT 4 mg sublingual q.4 h. p.r.n. for nausea and vomiting. We will place the patient on Daliresp 250 daily for advanced COPD with hospitalization to prevent recurrent hospitalizations. Discussed with the patient that insurance may not pay for that medication at this time. Patient is well aware. The patient is stable. Discharged home. Follow up as an outpatient. She will follow up with Dr. Yonny Page within a week. Job#: [id number]
== END 2017-08-05 12:10 | disposition home or self-care (01) | DRG 178 ==
LOC: ER 13:24 → ERHOLD 17:12 → IMCU 18:10 → OBSVTOIN 08-01 09:10 → MED/SURG3 08-01 19:48
PROVIDERS: ADMIT Internal Medicine; ATTEND Internal Medicine
CPT/HCPCS: 36415; 71046; 71250; 80048; 80053; 83605; 83880; 84484; 85025; 87040; 87071; 87205; 94640; 99285; G0378; J0696; J1650; J1956; J2543; J2920; J7040; J7050

== ENCOUNTER 2018-05-06 10:26 | Outpatient (RCR) | payer MEDICARE ==
[~2018-05-06 10:26] MED LIST changes: +ADVAIR 250-501 EACH INH; +AUGMENTIN 875-1 EACH PO; +DALIRESP500 MCG PO; +METHYLPREDNISOLO4 M1; +SPIRIVA18 MCG INH; +SYNTHROID100 MCG PO; +TESSALON PERLE100 MG PO; +ZOFRAN ODT4 MG SL
== END 2018-05-30 ==
LOC: RESP 10:26
PROVIDERS: ATTEND Internal Medicine
DX: J44.9 Chronic obstructive pulmonary disease, unspecified (principal)
CPT/HCPCS: 99407; G0238 ×7; G0424 ×7

== ENCOUNTER 2018-06-03 13:55 | Outpatient (RCR) | payer MEDICARE | END 2018-06-30 | LOC: RESP 13:55 | PROVIDERS: ATTEND Internal Medicine | DX: J96.11 Chronic respiratory failure with hypoxia (principal); J43.9 Emphysema, unspecified; J44.9 Chronic obstructive pulmonary disease, unspecified | CPT/HCPCS: G0238 ×5; G0424 ×5 ==

== ENCOUNTER 2020-05-26 14:46 | Outpatient (RCR) | payer MEDICARE | END 2020-05-30 | LOC: RESP 14:46 | DX: J44.9 Chronic obstructive pulmonary disease, unspecified (principal) | CPT/HCPCS: G0238 ×2; G0424 ×2 ==

== ENCOUNTER 2020-06-28 14:42 | Outpatient (RCR) | payer MEDICARE | END 2020-06-30 | LOC: RESP 14:42 | DX: J44.9 Chronic obstructive pulmonary disease, unspecified (principal) | CPT/HCPCS: G0238 ×10; G0424 ×10 ==

== ENCOUNTER 2020-07-28 14:43 | Outpatient (RCR) | payer MEDICARE | END 2020-07-30 | LOC: RESP 14:43 | PROVIDERS: ATTEND Internal Medicine | DX: J44.9 Chronic obstructive pulmonary disease, unspecified (principal) | CPT/HCPCS: G0238 ×3; G0424 ×3 ==

== ENCOUNTER 2020-08-25 15:00 | Outpatient (RCR) | payer MEDICARE | END 2020-08-30 | LOC: RESP 15:00 | PROVIDERS: ATTEND Internal Medicine | DX: J44.9 Chronic obstructive pulmonary disease, unspecified (principal) | CPT/HCPCS: G0238; G0424 ==

== ENCOUNTER 2020-09-01 14:50 | Outpatient (RCR) | payer MEDICARE | END 2020-09-29 | LOC: RESP 14:50 | PROVIDERS: ATTEND Internal Medicine | DX: J44.9 Chronic obstructive pulmonary disease, unspecified (principal) | CPT/HCPCS: G0238 ×4; G0424 ×4 ==

== ENCOUNTER 2020-10-20 15:00 | Outpatient (RCR) | payer MEDICARE | END 2020-10-30 | LOC: RESP 15:00 | PROVIDERS: ATTEND Internal Medicine | DX: J44.9 Chronic obstructive pulmonary disease, unspecified (principal) | CPT/HCPCS: G0238 ×6; G0424 ×6 ==